=== PATIENT | male | born 1990 | race Caucasian/White ===

== ENCOUNTER 2016-11-16 15:35 | Emergency (ER) | payer OTHER ==
[~2016-11-16] VITALS: Ht 177.8 cm; Wt 78.0 kg
[2016-11-16 15:43] VITALS: BP 136/82; PULSE 84; RESP 20; TEMP 98.1; O2SAT 98
[2016-11-16] MEDS ORDERED: MORPHINE SULFATE 4 MG/ML INJ IV PUSH ONE (16:00)
[2016-11-16] MEDS ORDERED: ONDANSETRON HCL 4 MG/2 ML VIAL IV ONE (16:00)
[2016-11-16] MEDS ORDERED: BUPIVACAINE HCL PF 0.5% 10 ML VIAL INFIL ONE (16:00)
[2016-11-16] MEDS ORDERED: TETANUS/DIPHTHERIA TOXOID ADULT 0.5 ML VIAL IM ONE (16:00)
--- NOTE | 2016-11-16 16:26 | RADRPT ---
EXAM DATE/TIME: 11/16/2016 16:01 [place] COMPARISON: No previous studies available for comparison. INDICATIONS : Right hand foreign body, possible glass from lightbulb. MEDICAL HISTORY : None. SURGICAL HISTORY : None. ENCOUNTER: Initial ACUITY: 1 day PAIN SCORE: 7/10 LOCATION: Right hand, between 1st and 2nd digits. FINDINGS: Three view examination of the right hand demonstrates hazy density over the left MCP joint probably r epresenting gauze dressing in an area of recent soft tissue injury. Osseous structures are all intact . No radiopaque foreign body identified. CONCLUSION: No fracture or radiopaque foreign body. Isaías Ramirez MD on November 16, 2016 at 16:17 Board Certified Radiologist. This report was verified electronically.
--- NOTE | 2016-11-16 16:29 | PD ---
HPI Chief Complaint: Laceration/Skin Injury Time Seen by Provider: 16:26 Travel History International Travel<30 days: No Contact w/Intl Traveler<30days: No Traveled to known affect area: No History of Present Illness HPI Patient is a 26-year-old male presenting to emergency department for evaluation to of a laceration to his right hand. Patient was removing a light bulb at work when the light bulb broke causing a laceration in between the first and second fingers. Patient is uncertain when his last tetanus vaccine was. He states the pain is a 6 out of 10 and describes as aching and throbbing. PFSH Past Medical History Medical History: Denies Significant Hx Diminished Hearing: No Tetanus Vaccination: > 5 Years Influenza Vaccination: No Past Surgical History Abdominal Surgery: Yes (HERNIA REPAIR ) Social History Alcohol Use: Yes (OCASSIONALLY) Tobacco Use: Yes Substance Use: Yes (MARIHUANNA) Allergies-Medications (Allergen,Severity, Reaction): Coded Allergies: No Known Allergies (Unverified , 11/16/16) Reported Meds & Prescriptions Reported Meds & Active Scripts Active Keflex (Cephalexin) 500 Mg Cap 500 Mg PO Q12H 5 Days Ibuprofen 800 Mg Tab 800 Mg PO Q6HR PRN Review of Systems Except as stated in HPI: all other systems reviewed are Neg Musculoskeletal: Positive: Pain Skin: Positive Other (laceration) Physical Exam Narrative GENERAL: Well-nourished, well-developed patient. SKIN: Focused skin assessment warm/dry. 2" laceration to the first and second finger space. Pulsatile bleeding noted along the medial aspect of the thumb, positive radial pulse, brisk less than 3 second capillary refill. HEAD: Normocephalic. EYES: No scleral icterus. No injection or drainage. NECK: Supple, trachea midline. No JVD or lymphadenopathy. CARDIOVASCULAR: Regular rate and rhythm without murmurs, gallops, or rubs. RESPIRATORY: Breath sounds equal bilaterally. No accessory muscle use. GASTROINTESTINAL: Abdomen soft, non-tender, nondistended. MUSCULOSKELETAL: No cyanosis, or edema. Patient has full range of motion with flexion and extension of fingers. BACK: Nontender without obvious deformity. No CVA tenderness. Data Data Last Documented VS Vital Signs Date Time Temp Pulse Resp B/P Pulse Ox O2 Delivery O2 Flow Rate FiO2 11/16/16 17:27 97.8 76 16 130/86 99 Room Air Orders Tetanus/Diphtheria Tox Adult (Tetanus/Di (11/16/16 16:00) Bupivacaine Pf 0.5% Inj (Marcaine Pf 0.5 (11/16/16 16:00) Hand, Complete ([id number]) (11/16/16 ) Ondansetron Inj (Zofran Inj) (11/16/16 16:00) Morphine Inj (Morphine Inj) (11/16/16 16:00) Complete Blood Count With Diff (11/16/16 16:55) Basic Metabolic Panel (Bmp) (11/16/16 16:55) Act Partial Throm Time (Ptt) (11/16/16 16:55) Prothrombin Time / Inr (Pt) (11/16/16 16:55) Povidone Iodine 10% Oint (Betadine 10% O (11/16/16 18:45) Labs Laboratory Tests Test 11/16/16 17:12 White Blood Count 4.4 TH/MM3 Red Blood Count 4.80 MIL/MM3 Hemoglobin 14.2 GM/DL Hematocrit 41.3 % Mean Corpuscular Volume 86.0 FL Mean Corpuscular Hemoglobin 29.6 PG Mean Corpuscular Hemoglobin 34.4 % Concent Red Cell Distribution Width 12.6 % Platelet Count 218 TH/MM3 Mean Platelet Volume 8.3 FL Neutrophils (%) (Auto) 67.7 % Lymphocytes (%) (Auto) 20.4 % Monocytes (%) (Auto) 9.2 % Eosinophils (%) (Auto) 2.3 % Basophils (%) (Auto) 0.4 % Neutrophils # (Auto) 3.0 TH/MM3 Lymphocytes # (Auto) 0.9 TH/MM3 Monocytes # (Auto) 0.4 TH/MM3 Eosinophils # (Auto) 0.1 TH/MM3 Basophils # (Auto) 0.0 TH/MM3 CBC Comment DIFF FINAL Differential Comment Prothrombin Time 10.7 SEC Prothromb Time International 1.0 RATIO Ratio Activated Partial 26.0 SEC Thromboplast Time Sodium Level 142 MEQ/L Potassium Level 4.0 MEQ/L Chloride Level 105 MEQ/L Carbon Dioxide Level 31.7 MEQ/L Anion Gap 5 MEQ/L Blood Urea Nitrogen 12 MG/DL Creatinine 0.85 MG/DL Estimat Glomerular Filtration 110 ML/MIN Rate Random Glucose 96 MG/DL Calcium Level 9.0 MG/DL MDM Medical Decision Making Medical Screen Exam Complete: Yes Emergency Medical Condition: Yes Interpretation(s) Vital Signs Date Time Temp Pulse Resp B/P Pulse Ox O2 Delivery O2 Flow Rate FiO2 11/16/16 16:13 17 11/16/16 15:51 17 11/16/16 15:43 98.1 84 20 136/82 98 Differential Diagnosis Arterial bleed versus laceration versus open fracture versus retained foreign object versus tendon injury versus nerve injury versus other Narrative Course Patient is a 26-year-old male presenting to emergency for evaluation of a laceration to his right hand that occurred at work while attempting to remove a light bulb which physically broke off cutting his hand. Patient has pulsatile bleeding noted from the medial aspect of the right thumb. Paged hand surgeon, Dr. Collier. He stated to anesthetize hand with Marcaine with epinephrine, and he would be down to evaluate patient. CBC, BMP, coags ordered in case of operative management. Labs reviewed and were unremarkable. 1899- Right hand was anesthetized with Marcaine with epinephrine per Dr. Collier 's request. 1914 -Dr. Collier at bedside to repair laceration and bleed. Please see Dr. Collier's procedure report for laceration repair. Patient tolerated well, bleeding was controlled, patient will be placed on antibiotics prophylactically, he will follow up with Dr. Collier in the office. He was advised to return to emergency department for any new or worsening symptoms. Patient verbalized understanding of these instructions. Patient is stable for discharge. Diagnosis Primary Impression: Laceration of hand, complicated Qualified Code: S61.411A - Laceration of hand, complicated, right, initial encounter Referrals: Elizabeth Collier MD 3 days Patient Instructions: Care For Your Stitches (ED), General Instructions, Laceration (ED) Additional Instructions: Keep wound clean and dry Elevate extremity Follow-up with Dr. Collier in his office in 3 days, call for an appointment Return to emergency department immediately for any new or worsening symptoms Take medications as directed Med/Other Pt SpecificInfo: Prescription(s) given Scripts Cephalexin (Keflex)500 Mg [id number] Mg PO Q12H 5 Days Ref 0 Prov:Oriana Chu 11/16/16 Ibuprofen 800 Mg [id number] Mg PO Q6HR PRN (PAIN) #40 TAB Ref 0 Prov:Oriana Chu 11/16/16 Disposition: 01 DISCHARGE HOME Condition: Stable Oriana Chu Nov 16, 2016 16:29
[2016-11-16 17:27] VITALS: BP 130/86; PULSE 76; RESP 16; TEMP 97.8; O2SAT 99
[2016-11-16 17:45] LABS: BASOPHIL % 0.4 % (0.0-2.0); EOSINOPHIL # 0.1 TH/MM3 (0-0.4); EOSINOPHIL % 2.3 % (0.0-4.0); HEMATOCRIT 41.3 % (39.0-51.0); HEMO FLAGS DIFF FINAL; LYMPH % 20.4 % (9.0-44.0); LYMPHOCYTE # 0.9 TH/MM3 (1.0-4.8); MEAN CORPUSCULAR HEMOGLOBIN 29.6 PG (27.0-34.0); MEAN CORPUSCULAR HGB CONC 34.4 % (32.0-36.0); MONO % 9.2 % (0.0-8.0); NEUT % 67.7 % (16.0-70.0); PLATELET COUNT 218 TH/MM3 (150-450); RED CELL DISTRIBUTION WIDTH 12.6 % (11.6-17.2); WHITE BLOOD COUNT 4.4 TH/MM3 (4.0-11.0)
[2016-11-16 17:55] LABS: PROTHROMBIN TIME - PATIENT 10.7 SEC (9.8-11.6)
[2016-11-16 18:06] LABS: BICARBONATE 31.7 MEQ/L (21.0-32.0)
[2016-11-16] MEDS ORDERED: POVIDONE IODINE 10% OINT 30 GM TUBE TOPICAL ONE (18:45)
[2016-11-16] MEDS ORDERED: CEPH-460 PO (19:35)
[2016-11-16] MEDS ORDERED: IBUP800T23 PO (19:35)
[2016-11-16] MEDS ORDERED: BUPIVACAINE/EPINEPHRINE 0.25% PF 30 ML VIAL NERV BLOCK ONE (19:45)
--- NOTE | 2016-11-19 05:42 | MB ---
cc: SUPRIYA ETIENNE M.D. DATE OF CONSULTATION 11/16/2016 REQUESTING PHYSICIAN The patient is being seen at request of Dr. Sean Foote. REASON FOR CONSULTATION Injury to the right hand with a laceration that has uncontrolled bleeding. HISTORY OF PRESENT ILLNESS The patient is 26-year-old male who was working, removing a light bulb at work. The light bulb broke and the patient sustained a laceration between the first and second fingers. It was noted that there was arterial bleeding characterized by pumping and a consultation was requested regarding evaluation and treatment of this uncontrolled arterial bleeding from the patient's first webspace of his hand. PAST MEDICAL HISTORY The patient is otherwise well. Denies high blood pressure, diabetes, heart disease, kidney disease, liver disease or disease of infectious etiology. PAST SURGICAL HISTORY Significant for hernia repair. SOCIAL HISTORY Alcohol use - Uses alcohol occasionally. Does admit to using tobacco. ALLERGIES No known food or drug allergies. MEDICATIONS Listed on the chart. REVIEW OF SYSTEMS Negative except as related to above. PHYSICAL EXAMINATION GENERAL: On examination the patient is lying comfortably in a stretcher. There is a pressure dressing on his hand. HEENT: His extraocular muscles are intact. His pupils are equal, round and reactive to light. Mouth is clear. NECK: Supple without mass. LUNGS: Clear. HEART: His heart has a regular rate rhythm. EXTREMITIES: The right hand has a pressure dressing on it and it has been anesthetized. It is reported that the patient has a full range of motion and no sensory deficits. REVIEW OF THE X-RAY DATA The patient's x-ray is negative for foreign material. IMPRESSION The patient has a laceration with an arterial bleed on the area of the first webspace of his right hand. PLAN The wound will be explored and bleeding controlled and the wound will be closed. The patient understands and accepts the risks and complications of surgery. MD RASHMI Larsen/OUMOU /9:38 PM /5:31 AM [facility] CENTERChayito
--- NOTE | 2016-11-20 12:55 | MP ---
cc: SUPRIYA ETIENNE M.D. DATE OF SURGERY 11/16/2016 PREOPERATIVE DIAGNOSIS Open wound of right hand with uncontrolled bleeding. POSTOPERATIVE DIAGNOSIS Open wound of right hand with controlled bleeding. PROCEDURE 1. Exploration of the right hand. 2. Control of the arterial bleeding. 3. Complex repair of a 3 cm laceration of the right hand ANESTHESIA Local SURGEON Supriya Etienne MD INDICATIONS This is a 26-year-old male with injury at work as noted above. FINDINGS At the completion of the procedure, the bleeding had been controlled and the wound was closed and the patient was comfortable. PROCEDURE The patient was seen in the emergency room where the operation was performed. The hand had been previously anesthetized with bupivacaine 0.5% plain with epinephrine 1:100,000 by the ER staff. A blood pressure cuff was placed on the upper extremity in the area just distal to the elbow. The hand was elevated and the blood pressure cuff was inflated to 220 mmHg. The dressing was removed. The wound was anesthetic. It was irrigated. The pressure was released. The arterial bleeder was identified and it was clamped and tied off with 4-0 Vicryl suture material. The suture was actually placed through the adventitia on both sides of the arterial and then tied. Once this was done, there was no evidence of any further bleeding. The wound was irrigated and closed with a running 4-0 nylon suture. The hand was then cleansed of Betadine and blood and dressed with povidone-iodine ointment, Adaptic, Telfa, 4x4s and Alon. The patient was then given back to the ER staff for disposition. Postoperative instructions include keeping the hand elevated, keeping it clean and dry and returning in several days for follow up. MD RASHMI Larsen/LENNOX /9:42 PM /12:39 PM [facility]
== END 2016-11-16 20:28 | disposition home or self-care (01) ==
LOC: NEPA 15:35
DX: S61.411A Laceration without foreign body of right hand, initial encounter (principal); W25.XXXA Contact with sharp glass, initial encounter; Y93.E9 Activity, other interior property and clothing maintenance; Y99.0 Civilian activity done for income or pay; Z23 Encounter for immunization; Z72.0 Tobacco use
CPT/HCPCS: 12042; 73130; 80048; 85025; 85610; 85730; 90471; 90714; 96374; 96375; 99283; J2270; J2405